=== PATIENT | female | born 1990 | race Caucasian/White ===

== ENCOUNTER 2019-04-23 11:45 | Outpatient (CLI) | payer MEDICAID, SELFPAY ==
[2019-04-23 13:09] LABS: Beta HCG Quantitative < 2.39 mIU/ML
== END 2019-04-23 11:46 | disposition home or self-care (01) ==
PROVIDERS: Visit Provider Emergency Medicine
DX: O26.891 Other specified pregnancy related conditions, first trimester (principal); Z3A.00 Weeks of gestation of pregnancy not specified; R10.9 Unspecified abdominal pain
CPT/HCPCS: 36415; 84702

== ENCOUNTER 2019-05-07 11:19 | Emergency (ER) | payer OTHER, SELFPAY ==
[2019-05-07 11:25] VITALS: BP 130/82; PULSE 92; RESP 20; TEMP 36.7; O2SAT 99
--- NOTE | 2019-05-07 11:39 | ED.GENADULT ---
HPI - General Adult General Chief complaint: Upper Respiratory Infection Stated complaint: COUGH/CONGESTION/SOB Time Seen by Provider: 05/07/19 11:39 Source: patient Mode of arrival: ambulatory Limitations: no limitations History of Present Illness HPI narrative: 28-year-old female patient presents to the [facility] with complaints of cough and cold symptoms for the past week and a half. Patient states that she has had a cough that is usually worse when she lays down at night. Patient states that she does have some shortness of breath and a sore throat with the cough. Denies any fevers, ear pain. Patient states she has had a little bit of a runny nose and stuffy nose. Denies any chest pain. Denies any abdominal pain, nausea, vomiting or diarrhea. Patient denies getting a flu shot this year. 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 Patient does admit to being an active cigarette smoker. Patient states she has been using [id number] DayQuil and NyQuil for her symptoms. Patient states she was diagnosed with bronchitis a couple of months ago. Related Data Home Medications Medication Instructions Recorded Confirmed [id number] cap PO 05/07/19 [Vicks DayQuil-NyQuil] Allergies Allergy/AdvReac Type Severity Reaction Status Date / Time No Known Allergies Allergy Verified 05/07/19 11:31 Review of Systems Review of Systems: Narrative: CONSTITUTIONAL: Denies fever, chills, or sweats. EYES: Denies visual changes, redness, or discharge. ENT: Positive rhinorrhea, congestion, denies sore throat, or otalgia. CARDIOVASCULAR: Denies chest pain, palpitations, or edema. RESPIRATORY: Positive cough with dyspnea at times GASTROINTESTINAL: Denies abdominal pain, nausea, vomiting, or diarrhea. GENITOURINARY: Denies dysuria or hematuria. SKIN: Denies rash or itching. MUSCULOSKELETAL: Denies back pain, joint pain, or myalgia. NEUROLOGIC: Denies headache, numbness, or weakness. PSYCHIATRIC: Denies anxiety or depression. 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 There is no relevant family history pertinent to the presenting complaint. Exam Narrative: Exam Narrative: GENERAL: Well-appearing, well-nourished, and in no acute distress. HEAD: Normocephalic, atraumatic. No tenderness noted to frontal maxillary sinuses on palpation. EYES: PERRLA and EOMI. ENT: Nares with erythema and edema noted bilaterally, no rhinorrhea or epistaxis. Mucous membranes moist. Posterior pharynx with no erythema, tonsillectomy, exudates or lesions present. Bilateral TMs are clear no erythema or foreign bodies in the canal. NECK: Supple. No lymphadenopathy CHEST: Patient is slightly decreased to bilateral lower lobes on auscultation. No respiratory distress. Patient does have a nonproductive cough noted during exam. No tripoding noted. Patient able to talk in clear complete sentences. HEART: Regular rate and rhythm. No murmur heard. Normal peripheral pulses. ABDOMEN: Soft, nontender, nondistended, normal active bowel sounds. EXTREMITIES: Normal range of carola
[2019-05-07] MEDS: ALBUTEROL SULFATE NEB 2.5 MG/3 ML INH INHALATION (12:16)
[2019-05-07] MEDS: IPRATROPIUM BR 0.02% INH SOLN 0.5 MG/2.5 ML VIAL INHALATION (12:16)
[2019-05-07 12:17] VITALS: PULSE 88; RESP 18; O2SAT 100
== END 2019-05-07 12:20 | disposition home or self-care (01) ==
PROVIDERS: Emergency Provider Nurse Practitioner Family
DX: J20.9 Acute bronchitis, unspecified (principal)
CPT/HCPCS: 94640; 99213; G0463

== ENCOUNTER 2019-05-29 16:27 | Emergency (ER) | payer OTHER, SELFPAY ==
[2019-05-29 16:33] VITALS: BP 131/88; PULSE 86; RESP 18; TEMP 37.1; O2SAT 97
--- NOTE | 2019-05-29 16:41 | ED.GENADULT ---
HPI - General Adult General Chief complaint: Upper Respiratory Infection Stated complaint: ears/throat/nausea Time Seen by Provider: 05/29/19 16:42 Source: patient and RN notes reviewed Mode of arrival: ambulatory Limitations: no limitations History of Present Illness HPI narrative: This is a 28 years old female presents to the office for an evaluation of chronic cough for one month. Cough is getting worse especially at nighttime.Associated with sore throat and right ear fullness. She smokes about 1pack/4-5days. States, prednisone has helped temporary; but never get rid of her cough. I reviewed patient's previous visit. HPI - General Adult General Chief complaint: Upper Respiratory Infection Stated complaint: COUGH/CONGESTION/SOB Time Seen by Provider: 05/07/19 11:39 Source: patient Mode of arrival: ambulatory Limitations: no limitations History of Present Illness HPI narrative: 28-year-old female patient presents to the [facility] with complaints of cough and cold symptoms for the past week and a half. Patient states that she has had a cough that is usually worse when she lays down at night. Patient states that she does have some shortness of breath and a sore throat with the cough. Denies any fevers, ear pain. Patient states she has had a little bit of a runny nose and stuffy nose. Denies any chest pain. Denies any abdominal pain, nausea, vomiting or diarrhea. Patient denies getting a flu shot this year. 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 Patient does admit to being an active cigarette smoker. Patient states she has been using [id number] DayQuil and NyQuil for her symptoms. Patient states she was diagnosed with bronchitis a couple of months ago. Related Data Allergies Allergy/AdvReac Type Severity Reaction Status Date / Time No Known Allergies Allergy Verified 05/29/19 16:38 Review of Systems Review of Systems: Narrative: CONSTITUTIONAL: Denies fever EYES: Denies visual changes, redness, discharge. ENT: reports sore throat and right ear pain CARDIOVASCULAR: Denies chest pain, palpitation RESPIRATORY: Denies dyspnea, wheezing GASTROINTESTINAL: Denies abdominal pain, nausea, vomiting, diarrhea. 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 There is no relevant family history pertinent to the presenting complaint. Exam Narrative: Exam Narrative: GENERAL: This is a well-nourished, well-developed patient, in no apparent distress. EYES:Sclera clear/white. Vision is grossly intact. EARS: External ears normal, auditory canals clear and without drainage, TMs normal without perforation, noted fluid level. Hearing grossly intact. NOSE: External nose normal with no obvious nasal discharge, nares without redness, no rhinorrhea. THROAT: Mucous membranes moist, posterior pharynx clear. NECK: Neck supple, non-tender without lymphadenopathy, masses or thyromegaly. CARDIOVASCULAR: Regular rate and rhythm without m
== END 2019-05-29 17:00 | disposition home or self-care (01) ==
PROVIDERS: Emergency Provider Nurse Practitioner
DX: J06.9 Acute upper respiratory infection, unspecified (principal); F17.210 Nicotine dependence, cigarettes, uncomplicated
CPT/HCPCS: 99213; G0463

== ENCOUNTER 2019-08-12 06:15 | Outpatient (CLI) | payer OTHER, SELFPAY | END 2019-08-12 06:16 | disposition home or self-care (01) | PROVIDERS: Visit Provider Obstetrics & Gynecology | DX: Z01.812 Encounter for preprocedural laboratory examination (principal); Z20.828 Contact with and (suspected) exposure to other viral communicable diseases | CPT/HCPCS: 87635; U0003 ==

== ENCOUNTER 2019-08-14 01:05 | Day surgery (SDC) | payer OTHER, SELFPAY ==
[2019-08-09 08:59] VITALS: BMI 29.0
[2019-08-14] VITALS (8 sets, daily range): BP systolic 112–131; BP diastolic 68–94; PULSE 67–86; RESP 12–20; TEMP 36.4–36.8; O2SAT 95–100; BMI 29.2
[2019-08-14] MEDS: LACTATED RINGERS 1,000 ML 30 ML IV CONT (08:40)
[2019-08-14] MEDS: IBUPROFEN IV 800 MG/200 ML 800 MG/200 ML BAG 400 MG IVPB (08:45)
--- NOTE | 2019-08-14 09:01 | WPDANESEPPF ---
Anes - Initial Pre Proc Eval Procedure: Operation Date: 08/14/19 10:30 Proposed Procedures p Excision of Bartholin's Cyst - Sybil Hickman MD Date/Time: 08/14/19 09:01 Surgeon: Sybil Hickman MD Pre Op Diagnosis: Bartholin cyst Patient Data Age: 28 Gender: F Height: 5 ft 6 in Weight: 81.65 kg Allergies Allergy/AdvReac Type Severity Reaction Status Date / Time No Known Allergies Allergy Verified 08/09/19 08:59 Home Medications Medication Instructions Recorded Confirmed Type cephalexin 500 mg PO TID 08/09/19 08/09/19 History Patient hx anesthesia problems: none Family hx anesthesia problems: none PMFSH Past Medical History Medical History Bipolar 1 disorder Chronic headaches Congenital hallux valgus of both feet Depression 1 Seasonal allergic rhinitis Surgical History Surgical History Metatarsal fracture (03/04/19) No history of previous surgery Family History Family History Other Arthritis Cancer Hypertension Social History Social History Smoking status: Current every day smoker Alcohol intake: current Substance use: unknown 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 Questions were solicited and answers provided to the satisfaction of the patient/family/POA.
--- NOTE | 2019-08-14 09:14 | WPDHPUPDATE1 ---
History and Physical Update Update Date/Time: 08/14/19 09:14 History and Physical has been reviewed, including an updated exam of the patient. There are NO changes in the patient's condition. Risks, benefits, and alternatives have been discussed and questions answered. Patient agrees to proceed with procedure.
--- NOTE | 2019-08-14 09:26 | SUR.PREOP ---
0920; PT WALKED TO BATHROOM. GAIT STEADY. VOIDED.
[2019-08-14] MEDS: LIDO 1%/EPINEPHRINE 1:100,000 20 ML VIAL 5 ML INFILTRATE (10:27)
--- NOTE | 2019-08-14 10:35 | SUR.OPER ---
ebl:[id number]
--- NOTE | 2019-08-14 10:49 | P.OP_ITS ---
Procedure Note - Detailed Date of procedure: 08/14/19 Pre-op diagnosis: Bartholin cyst Post-op diagnosis: other (Labial mass/subcutaneous nodule) Procedure performed: Excision of labial mass Description of procedure: The patient was taken the operating room. She was prepped and draped in dorsal lithotomy position. The skin of the perineum adjacent to the right thigh was injected with subcutaneous lidocaine. In the area over the mass the skin was opened in a linear fashion using a scalpel. The subcutaneous tissue was dissected with Metzenbaum scissors the mass was grasped. It was raised and the margins of the mass were carefully dissected off with Metzenbaum scissors and blunt dissection. Cautery was used at the base to ligate the blood supply. Cautery was also used to make the bed of the open wound hemostatic. Sutures then used to close the defect. Three layers of interrupted sutures were used. Three 0 Vicryl was used within the wound. The skin was closed with 3 O Vicryl. The patient tolerated the procedure well. She was taken recovery room stable condition. Sponge lap and needle counts were correct x2. Anesthesia: GLMA Surgeon: Sybil Hickman MD Calibration Technician: None Estimated blood loss (mL): 15 Drains: No Packing: No Pathology: yes Condition: stable Disposition: same day Findings: There was a 3 cm subcutaneous nodule lateral to the labia majora on the right near the thigh. Also near the perineum. Otherwise the vulva vagina were normal. The bilateral labia majora and vulva and introitus were palpated with early to detect any other masses.
== END 2019-08-14 12:18 | disposition home or self-care (01) ==
PROVIDERS: PCP Emergency Medicine; Visit Provider Obstetrics & Gynecology
PROC: (CPT 56440; principal; 2019-08-14 10:30)
DX: N76.89 Other specified inflammation of vagina and vulva (principal); F31.9 Bipolar disorder, unspecified; F17.200 Nicotine dependence, unspecified, uncomplicated
CPT/HCPCS: 11426; 12042; 88304; A9270; J1100; J1741; J2250; J2405; J2704; J3010; J7120

== ENCOUNTER 2019-10-22 01:34 | Outpatient (CLI) | payer OTHER, SELFPAY ==
[2019-10-22 17:56] LABS: SARS-CoV-2 RNA PCR Negative
== END 2019-10-22 01:35 | disposition home or self-care (01) ==
LOC: ANHCOVIDDT 01:34
PROVIDERS: PCP Emergency Medicine; Visit Provider Orthopaedic Surgery
DX: Z01.812 Encounter for preprocedural laboratory examination (principal); Z11.59 Encounter for screening for other viral diseases
CPT/HCPCS: 87635; C9803; U0003

== ENCOUNTER 2019-10-24 02:46 | Day surgery (SDC) | payer OTHER, SELFPAY ==
[2019-10-14 15:15] VITALS: BMI 28.4
--- NOTE | 2019-10-23 09:00 | WPDANESEPPF ---
Anes - Initial Pre Proc Eval Procedure: Operation Date: 10/24/19 09:30 Proposed Procedures p Right Hallux Valgus Correction with First Metatarsal Osteotomy, Possible Phalangeal Osteotomy - Ramon Gan MD Date/Time: 10/23/19 09:00 Surgeon: Ramon Gan MD Pre Op Diagnosis: right hallux valgus Patient Data Age: 28 Gender: F Height: 1.68 m Weight: 80 kg Allergies Allergy/AdvReac Type Severity Reaction Status Date / Time No Known Allergies Allergy Verified 10/14/19 15:16 Home Medications Medication Instructions Recorded Confirmed Type No Home Medications 10/14/19 10/14/19 History Patient hx anesthesia problems: none Family hx anesthesia problems: none [facility] Social History Social History (Updated 10/09/19 @ 14:28 by Melonie Turpin, RT(R)) Smoking packs per day: 1 Smoking cigarettes per day: 20.0 Years smoked: 14 Smoking pack-years: 14.00 Smoking status: Current every day smoker Alcohol intake: current Drinks per week: 5 Alcohol use details: less than once a week Substance use: unknown Living arrangements: with family 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 Gender identity (if verbalized by the patient): Female Spiritual care concerns: No Anes - Eval Final PreProcedure Day of Procedure 10/23/19 09:00 Patient weight: overweight Heart: regular rate and rhythm Lungs: clear to auscultation and normal air movement Airway: Mallampati scale class II Neurological: alert and oriented Last oral intake: >/= 8 hours ASA classification: II Emergent: no Anesthetic plan: proceed Anesthesia type and monitoring: general LMA and standard monitoring Informed Consent: The patient's anesthetic plan and its attendant risks and benefits were discussed with the patient/family/POA. Questions were solicited and answers provided to the satisfaction of the patient/family/POA.
[2019-10-24] VITALS (7 sets, daily range): BP systolic 117–135; BP diastolic 64–85; PULSE 63–81; RESP 12–20; TEMP 36.2–36.7; O2SAT 97–100
--- NOTE | ~2019-10-24 | XR_ITS ---
EXAMINATION: XR surgery orthopedic EXAM DATE: 10/24/2019 11:09 INDICATION: Right foot surgery. TECHNIQUE: Fluoroscopy used during XR surgery orthopedic performed by Dr. Ramon Gan MD. The DAP for this procedure was 2.6 cGycm2. FINDINGS: Images demonstrate right 1st proximal phalangeal and metatarsal neck osteotomies, surgical defects. There is a metal clip bridging the phalangeal osteotomy. Correlate with procedure note. Co rrelate with procedure note. IMPRESSION: Fluoroscopy used during XR surgery orthopedic. Reviewed, dictated and finalized at location A.
--- NOTE | 2019-10-24 07:02 | WPDHPUPDATE1 ---
History and Physical Update Update Date/Time: 10/24/19 07:02 History and Physical has been reviewed, including an updated exam of the patient. There are NO changes in the patient's condition. Covid test negative. Risks, benefits, and alternatives have been discussed and questions answered. Patient agrees to proceed with procedure.
[2019-10-24] MEDS: LACTATED RINGERS 1,000 ML 30 ML IV CONT ×2 (08:10→11:15)
[2019-10-24] MEDS: KETOROLAC 15 MG/ML VIAL (*BKC) IV PUSH (08:12)
[2019-10-24] MEDS: ACETAMINOPHEN 500 MG TABLET 1000 MG PO (08:14)
[2019-10-24] MEDS: ceFAZolin 2 GM/D5W 50 ML 2 GM/50 ML BAG IVPB (09:43)
--- NOTE | 2019-10-24 11:32 | PM.PROC ---
Procedure Note - Detailed Date of procedure: 10/24/19 Pre-op diagnosis: right hallux valgus Post-op diagnosis: same Procedure performed: right hallux valgus correction with double osteotomy of the 1st metatarsal and proximal phalanx Description of procedure: OPERATIVE INDICATIONS: The patient is a 28 year-old woman with right congenital hallux valgus deformity, prominence of the medial eminence, and right foot pain. The patient has failed conservative treatment with shoe inserts, accommodative shoes, activity modifications and medication. Patient underwent previous surgical treatment 8 years ago at age 18. She has had recurrence of deformity. The patient has pain with daily activity. Symptoms have caused restriction in the patient's activity. The patient presents for operative treatment. WHAT WAS DONE: After informed consent was given, the operative extremity was marked in the preoperative holding area. The patient received intravenous antibiotics. The patient was brought to the operating room where they underwent a general anesthetic by the anesthesia team. The patient was positioned supine on the operating room table. A time-out was performed confirming the patient, site of the surgery, and the plan for surgery. The right lower extremity was then prepped and draped in the usual sterile surgical fashion using ChloraPrep skin solution. Foot and ankle were exsanguinated and a calf tourniquet was inflated to 225 mmHg pressure. A longitudinal incision was then made along the medial border of the 1st ray centered over the medial eminence with a #15 blade knife. The previous incision was utilized. Hemostasis was controlled with electric cautery. The dorsal and plantar sensory nerves were identified and retracted bluntly. A medial capsulotomy was then performed. This was reflected off the medial eminence. The joint was inspected for evaluation of degenerative changes. A lateral release was then performed through the joint with a #15 blade knife. The medial eminence was then resected with a sagittal saw in line with the medial border of the foot. Correction of the deformity was performed with a chevron-shaped osteotomy performed with sagittal saw from medial to lateral through the distal portion of the 1st metatarsal. The lateral portion of the bone cut was completed with an osteotome to protect the soft tissue. The capital fragment was then translated laterally and impacted on to the 1st metatarsal shaft. Lateral translation and impaction corrected both hallux valgus deformity and correction of the distal metatarsal articular angle. Temporary fixation was performed and alignment was verified with image intensification. Hallux valgus angle correction, intermetatarsal angle correction and distal metatarsal articular angle were verified. Fixation was achieved with 2.0 millimeter bioabsorbable pins. Two pins were utilized. Image intensification confirmed final alignment. Rotation was verified visually. The wound was then thoroughly irrigated with antibiotic solution. The capsule was repaired through a drill hole in the distal 1st metatarsal with 0 Vicryl interrupted suture. The dorsal limb of the capsule was repaired with 00 Vicryl interrupted suture. Subcutaneous tissue was repaired with 000 Monocryl interrupted suture and the skin approximated with 0000 nylon running suture. Local anesthetic with 0.5% Marcaine plain was injected in the soft tissue. Clinically and fluoroscopically there was still hallux valgus interphalangeus present. Proximal phalanx osteotomy was indicated. Medial incision made along the proximal phalanx with 15 blade knife. Hemostasis controlled electrocautery. Dissection down to the medial aspect of the proximal phalanx. Retractors placed. Sagittal saw used to make a medial closing wedge osteotomy transversely across the proximal phalanx. Image intensification confirmed placement of the osteotomy. Fixation was achieved with the Arthrex 10 m
== END 2019-10-24 13:10 | disposition home or self-care (01) ==
PROVIDERS: PCP Emergency Medicine; Visit Provider Orthopaedic Surgery
PROC: (CPT 28299; principal; 2019-10-24 09:30)
DX: M20.11 Hallux valgus (acquired), right foot (principal); F17.210 Nicotine dependence, cigarettes, uncomplicated
CPT/HCPCS: 28299; A9270; C1713; J0690; J1100; J1885; J2250; J2405; J2704; J3010; J7120

== ENCOUNTER → 2019-11-19 14:54 | Outpatient (CLI) | payer OTHER, SELFPAY ==
--- NOTE | ~2019-11-19 | XR_ITS ---
EXAMINATION: XR chest 2V 11/19/2019 15:18 INDICATION: Tobacco use. PROCEDURE: 2 view chest COMPARISON: 04/20/2014 FINDINGS: The lungs are clear. The cardiomediastinal silhouette is within normal limits. There are no pleural effusions. There is no pneumothorax suspected. IMPRESSION: 1: NO ACUTE CARDIOPULMONARY DISEASE. Reviewed, dictated and finalized at location A.
== END ==
PROVIDERS: PCP Emergency Medicine; Visit Provider Emergency Medicine
DX: Z72.0 Tobacco use (principal)
CPT/HCPCS: 71046

== ENCOUNTER 2019-12-03 15:25 | Emergency (ER) | payer OTHER, SELFPAY ==
--- NOTE | ~2019-12-03 | XR_ITS ---
EXAMINATION: XR foot RT min 3V DATE: 12/03/2019 16:11 INDICATION: Redness and swelling, bunionectomy in September 2019 TECHNIQUE: Dorsoplantar, lateral, and 2 oblique views of the right foot were obtained. COMPARISON: 11/13/2019 FINDINGS: Changes of hallux valgus correction with double osteotomy of the first metatarsal and first proximal phalanx are noted. There is continued routine healing at the osteotomy sites. Alignment is normal. There is increased soft tissue swelling medial to the head of the first metatarsal. There is also increasing dorsal soft tissue swelling of the foot. The bones, joint spaces, and soft tissues ar e otherwise unremarkable. IMPRESSION: 1. Increasing soft tissue swelling medial to the head of the first metatarsal and of the dorsal foot. 2. Changes of the osteotomy of the first metatarsal and first proximal phalanx with routine healing. Reviewed, dictated and finalized at location B. IMPRESSION: 1. Increasing soft tissue swelling medial to the head of the first metatarsal a nd of the dorsal foot. 2. Changes of the osteotomy of the first metatarsal and first proximal phalanx with routine healing.
[2019-12-03 15:32] VITALS: BP 145/90; PULSE 103; RESP 18; TEMP 37.3; O2SAT 100
--- NOTE | 2019-12-03 16:11 | ED.GENADULT ---
HPI - General Adult General Chief complaint: Extremity Injury, Lower Stated complaint: right foot infection Time Seen by Provider: 12/03/19 15:41 Source: patient Mode of arrival: ambulatory Limitations: no limitations History of Present Illness HPI narrative: 29 years old white female presents with pain and redness of the right foot started 4 days ago gradually getting worse. Patient denies any injury, fever, chills, nausea, vomiting. Patient is status post right bunion surgery and October 23. Related Data Allergies Allergy/AdvReac Type Severity Reaction Status Date / Time vancomycin Allergy Intermediate Redness of Verified 12/03/19 17:39 Skin Review of Systems Review of Systems: Narrative: CONSTITUTIONAL: Denies fever, chills, or sweats. EYES: Denies visual changes, redness, or discharge. ENT: Denies rhinorrhea, congestion, sore throat, or otalgia. CARDIOVASCULAR: Denies chest pain, palpitations, or edema. RESPIRATORY: Denies cough or dyspnea. GASTROINTESTINAL: Denies abdominal pain, nausea, vomiting, or diarrhea. GENITOURINARY: Denies dysuria or hematuria. SKIN: Denies rash or itching. MUSCULOSKELETAL: Denies back pain, joint pain, or myalgia. NEUROLOGIC: Denies headache, numbness, or weakness. PSYCHIATRIC: Denies anxiety or depression. [facility] Past Medical History Medical History Bipolar 1 disorder Chronic headaches Congenital hallux valgus of both feet Depression Encounter for Postoperative Care 1 Seasonal allergic rhinitis Surgical History Surgical History Metatarsal fracture (03/04/19) No history of previous surgery Family History Family History Other Arthritis Cancer Hypertension Social History Social History Smoking packs per day: 1 Smoking cigarettes per day: 20.0 Years smoked: 14 Smoking pack-years: 14.00 Smoking status: Current every day smoker Alcohol intake: current Drinks per week: 5 Substance use: unknown 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 Right foot showed well-healing surgical scar at the medial side of the front of the foot, diffuse erythematous changes along the medial side, dorsal side of the foot up to the ankle anteriorly, warm to touch, diffusely tender, no discharge Head: Normocephalic, nontraumatic Eyes: Clear conjunctiva ENT: Oropharynx normal, ears normal, nose normal Neck: Supple, nontender Chest and respiratory: Airway patent, no respiratory distress, no accessory muscle use Heart: Regular rate/rhythm Vascular: Normal peripheral pulses, normal capillary refill. 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 And red skin The infusion was stopped, Benadryl 50 mg IV, prednisone 60 mg orally ordered. Keflex 500 mg orally ordered. Patient will be discharged on Keflex 500 3 times daily for the next 10 days, keep foot elevated, to see Dr. Gan in a.m. Date: 12/03/19 Time: 17:38 Consultations Consultation #1: Dr. Gan See patient in office tomorrow morning. Date: 12/03/19 Time: 17:46 Vital Signs Vit
[2019-12-03 16:20] LABS: Basophils Percent Auto 0.4 % (0.2-1.2); Eosinophils Absolute Auto 0.1 K/mm3 (0-0.3); Eosinophils Percent Auto 0.8 % (0-4.4); Hematocrit 40.8 % (37.0-47.0); Hemoglobin 13.7 g/dL (12.0-15.0); Immature Granulocyte Absolute 0.03 K/mm3 (0.00-0.031); Immature Granulocyte Percent A 0.4 % (0-0.5); Lymphocytes Absolute Auto 1.87 K/mm3 (0.9-3.2); Mean Corpuscular HGB Conc 33.6 g/dl (32-36); Mean Corpuscular Hemoglobin 30.5 pg (26-34); Mean Corpuscular Volume 90.9 fl (80-100); Monocytes Absolute Auto 0.5 K/mm3 (0.1-0.6); Neutrophils Percent Auto 66.4 % (45.5-73.1); Platelet Count Result 182 k/mm3 (150-375); Red Blood Count 4.49 M/mm3 (4.2-5.4); Red Cell Distribution Width 12.3 % (11.5-14.5); White Blood Count 7.5 K/mm3 (4.5-10.0)
[2019-12-03 16:32] LABS: Alanine Aminotransferase 13 U/L (4-35); Albumin Level 4.8 g/dL (3.5-5.1); Alkaline Phosphatase 70 U/L (38-126); Anion Gap 8 mmol/L (8-16); Aspartate Amino Transferase 26 U/L (14-36); Bilirubin,Total 0.4 mg/dL (0.2-1.3); Blood Urea Nitrogen 17 mg/dL (7-17); Calcium 9.5 mg/dL (8.4-10.2); Carbon Dioxide 31 mmol/L (22-30); Chloride 99 mmol/L (98-107); Estimated CRCL calculation 109 ml/min; Estimated Glomerular Filt Rate > 60; Glucose 93 mg/dL (65-105); Potassium 4.3 mmol/L (3.4-5.0); Sodium 138 mmol/L (137-145)
--- NOTE | 2019-12-03 17:28 | PC.NURSE ---
Pt called out stating that she was itching all over her body, no rash visible at this time. Vancomycin stopped. notified. VORB for 500 mg PO keflex
[2019-12-03] MEDS: CEPHALEXIN 500 MG CAPSULE PO (17:37)
--- NOTE | 2019-12-03 17:37 | PC.NURSE ---
Pt now developed a rash on her abdomen. Pt has reddened face
[2019-12-03] MEDS: diphenhydrAMINE HCl INJ 50 MG/ML VIAL IV PUSH (17:47)
[2019-12-03] MEDS: predniSONE 20 MG TABLET 60 MG PO (17:50)
[2019-12-03 18:20] VITALS: RESP 16
== END 2019-12-03 18:20 | disposition home or self-care (01) ==
PROVIDERS: Emergency Provider Emergency Medicine; PCP Emergency Medicine
DX: T81.49XA Infection following a procedure, other surgical site, initial encounter (principal); L03.115 Cellulitis of right lower limb; T36.8X5A Adverse effect of other systemic antibiotics, initial encounter; F17.210 Nicotine dependence, cigarettes, uncomplicated; L29.9 Pruritus, unspecified
CPT/HCPCS: 36415; 73630; 80053; 85025; 96365; 96375; 99284; A9270; J1200; J3370; J7512

== ENCOUNTER 2020-06-03 15:18 | Emergency (ER) | payer OTHER, SELFPAY ==
[2020-06-03 15:28] VITALS: BP 150/95; PULSE 82; RESP 16; TEMP 36.6; O2SAT 100
--- NOTE | 2020-06-03 15:39 | ED.NAVMDI ---
HPI - Nausea/Vomiting/Diarrhea General Chief complaint: Nausea/Vomiting/Diarrhea Stated complaint: VOMITING/DIARRHEA/DIZZY Time Seen by Provider: 06/03/20 15:33 Source: patient and RN notes reviewed Mode of arrival: ambulatory Limitations: no limitations History of Present Illness HPI Narrative: 29-year-old female presents with concern for persistent diarrhea and nausea. Reports 5 days ago she began having nausea without vomiting, diarrhea, abdominal cramping, feeling dizzy. She denies abdominal pain, vomiting, poor appetite, fever, body aches, chills, sweats. Denies any known sick contacts. Denies upper respiratory symptoms. Reports she is currently having approximately 15 diarrhea stools daily. She denies any intervention. Reports another member of her household has the same symptoms for the same amount of time. She denies any known contaminated food. Denies any recent travel MD elicited complaint: diarrhea Related Data Allergies Allergy/AdvReac Type Severity Reaction Status Date / Time vancomycin Allergy Intermediate Redness of Verified 12/31/19 10:15 Skin Review of Systems Review of Systems: Narrative: CONSTITUTIONAL: Denies malaise, chills, sweats, or fever. EYES: Denies visual changes, redness, or discharge. ENT: Denies rhinorrhea, congestion, sinus pain, otalgia or sore throat. CARDIOVASCULAR: Denies chest pain, palpitations, or edema. RESPIRATORY: Denies cough or dyspnea. GASTROINTESTINAL: Denies abdominal pain, vomiting, bloody, or mucous stools. Reports diarrhea nausea GENITOURINARY: Denies dysuria or hematuria. SKIN: Denies rash or itching. MUSCULOSKELETAL: Denies myalgia. NEUROLOGIC: Denies headache. All systems reviewed & are unremarkable except as noted in HPI and below PMFSH Past Medical History Medical History (Updated 06/03/20 @ 15:52 by Ellen Frias NP) Bipolar 1 disorder Chronic headaches Congenital hallux valgus of both feet Depression Encounter for Postoperative Care 1 Seasonal allergic rhinitis Surgical History Surgical History Metatarsal fracture (03/04/19) No history of previous surgery Family History Family History Other Arthritis Cancer Hypertension Social History Social History Smoking packs per day: 1 Smoking cigarettes per day: 20.0 Years smoked: 14 Smoking pack-years: 14.00 Smoking status: Current every day smoker Alcohol intake: current Drinks per week: 5 Substance use: unknown 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 There is no relevant family history pertinent to the presenting complaint Exam Narrative: Exam Narrative: GENERAL: Well-appearing, well-nourished, and in no acute distress. HEAD: Normocephalic. EYES: PERRLA, conjunctivae clear. NECK: Supple. No lymphadenopathy CHEST: Clear to auscultation. No respiratory distress. HEART: Regular rate and rhythm. ABDOMEN: Soft, mild tenderness in the right lower quadrant otherwise nontender upon palpation, nondistended, normal active bowel sounds, no palpable or pulsatile masses, no guarding. No CVA tenderness SKIN: Warm, dry, no rash. NEURO: Alert and oriented x3. PSYCH: Normal mood and affect Course Course Emergency Course: Patient is aware of diagnosis, understands and agrees to treatment plan. Anticipatory guidance given. Patient agrees to follow-up as directed and is aware of reasons to seek care at the emergency department. Portions of this record may have been created with voice recognition software Vital Signs Vital signs: Vital Signs Temperature 97.8 F 06/03/20 15:28 Pulse Rate 82 06/03/20
== END 2020-06-03 16:07 | disposition home or self-care (01) ==
PROVIDERS: Emergency Provider Nurse Practitioner; PCP Emergency Medicine
DX: R19.7 Diarrhea, unspecified (principal); Z20.822 Contact with and (suspected) exposure to COVID-19; F17.210 Nicotine dependence, cigarettes, uncomplicated
CPT/HCPCS: 87426; 99213; C9803; G0463

== ENCOUNTER 2020-09-10 02:56 | Emergency (ER) | payer OTHER, SELFPAY ==
--- NOTE | ~2020-09-10 | XR_ITS ---
XR hand LT min 3V, XR wrist LT min 3V 09/10/2020 03:37 INDICATION: Left hand pain after punching wall PROCEDURE: 4 views left hand and 4 views left wrist COMPARISON: No prior studies for comparison. FINDINGS: Fracture, dislocation or subluxation is not identified. The soft tissues appear within norm al limits. No foreign bodies are identified. IMPRESSION: 1: NO ACUTE BONE OR JOINT ABNORMALITY IDENTIFIED. Reviewed, dictated and finalized at location A. IMPRESSION: 1: NO ACUTE BONE OR JOINT ABNORMALITY IDENTIFIED.
[2020-09-10 03:11] VITALS: BP 131/82; PULSE 97; RESP 16; TEMP 36.9; O2SAT 98
--- NOTE | 2020-09-10 03:54 | ED.GENADULT ---
HPI - General Adult General Chief complaint: Extremity Injury, Upper Stated complaint: i think i broke my hand/wrist Time Seen by Provider: 09/10/20 03:10 History of Present Illness HPI narrative: Patient 29-year-old female presents the emergency department with chief complaint of left hand pain. The patient states that she accidentally hit a wall with her hand on Monday and reports that she has pain in the dorsum of her left hand worse at the fourth and fifth metacarpal area. Patient states that it hurts whenever she extends her fingers reports that it is improved with rest. Patient denies laceration denies any other injury Related Data Allergies Allergy/AdvReac Type Severity Reaction Status Date / Time vancomycin Allergy Intermediate Redness of Verified 12/31/19 10:15 Skin Review of Systems Review of Systems: Narrative: A 10 system review of systems was completed on the patient and is negative except for what is stated in the HPI. Nursing and ancillary documentation was reviewed. PMFSH Past Medical History Medical History (Updated 09/10/20 @ 03:57 by Andrea Townsend MD) Bipolar 1 disorder Chronic headaches Congenital hallux valgus of both feet Depression Encounter for Postoperative Care 1 Seasonal allergic rhinitis Surgical History Surgical History Metatarsal fracture (03/04/19) No history of previous surgery Family History Family History Other Arthritis Cancer Hypertension Social History Social History Smoking packs per day: 1 Smoking cigarettes per day: 20.0 Years smoked: 14 Smoking pack-years: 14.00 Smoking status: Current every day smoker Alcohol intake: current Drinks per week: 5 Substance use: unknown 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 HEAD: Normocephalic, atraumatic. EYES: PERRLA and EOMI. ENT: Nares clear, no rhinorrhea or epistaxis. Mucous membranes moist. NECK: Supple. CHEST: Clear to auscultation. No respiratory distress. HEART: Regular rate and rhythm. No murmur heard. Normal peripheral pulses. ABDOMEN: Soft, nontender, nondistended, normal active bowel sounds. EXTREMITIES: Normal range of motion. No edema. There is bruising present on the dorsum of the left hand SKIN: Warm, dry, no rash. NEURO: No focal deficits. Alert and oriented x3. PSYCH: Normal mood and affect. Course Vital Signs Vital signs: Vital Signs Temperature 36.9 C 09/10/20 03:11 Pulse Rate 97 09/10/20 03:11 Respiratory Rate 16 09/10/20 03:11 Blood Pressure 131/82 09/10/20 03:11 Pulse Oximetry 98 09/10/20 03:11 Temperature 36.9 C 09/10/20 03:11 Pulse Rate 97 09/10/20 03:11 Respiratory Rate 16 09/10/20 03:11 Blood Pressure 131/82 09/10/20 03:11 Pulse Oximetry 98 09/10/20 03:11 Medical Decision Making Vital Signs Vital Signs: Vital Signs Temperature 36.9 C 09/10/20 03:11 Pulse Rate 97 09/10/20 03:11 Respiratory Rate 16 09/10/20 03:11 Blood Pressure 131/82 09/10/20 03:11 Pulse Oximetry 98 09/10/20 03:11 Temperature 36.9 C 09/10/20 03:11 Pulse Rate 97 09/10/20 03:11 Respiratory Rate 16 09/10/20 03:11 Blood Pressure 131/82 09/10/20 03:11 Pulse Oximetry 98 09/10/20 03:11 Discharge Plan Discharge Clinical Impression: Contusion of left hand Patient Disposition: Home, Self-Care Condition: Stable Instructions: Antibiotic Form, Hematoma (ED), Contusion in Adults (ED) Prescriptions: No Action azithromycin [Zithromax Z-Dirk] 250 mg tablet See Rx Instructions .ROUTE .COMPLEX Qty: 6
[2020-09-10 04:02] VITALS: BP 129/68; PULSE 89; RESP 16
== END 2020-09-10 04:02 | disposition home or self-care (01) ==
PROVIDERS: Emergency Provider Emergency Medicine; PCP Emergency Medicine
DX: S60.222A Contusion of left hand, initial encounter (principal); F17.210 Nicotine dependence, cigarettes, uncomplicated; W22.01XA Walked into wall, initial encounter
CPT/HCPCS: 73110; 73130; 99283